=== PATIENT | male | born 1990 | race Caucasian/White ===

== ENCOUNTER 2019-03-18 12:48 | Emergency (ER) | payer BC ==
[~2019-03-18] VITALS: Ht 172.7 cm; Wt 127.0 kg
[2019-03-18 13:05] VITALS: BP_SYST 132
--- NOTE | 2019-03-18 13:05 | NUR ---
Patient to ER bed 7 to gown for evaluation. Side rails up. Report given to HILTON Cobos.
--- NOTE | 2019-03-18 13:06 | NUR ---
KYAW Gates at bedside examining patient.
--- NOTE | 2019-03-18 13:06 | NUR ---
Patient arrived via POV, AAOx4, and ambulatory with steady gait. Patient c/c of nausea and vomiting. Onset was 0400, and has had 3-4 episodes of vomiting. Patient states approximately 1 hour ago, he was able to tolerate apple juice and crackers. Patient states pain is 6/10 to epigastric region. Family at bedside. Patient states he is comfortable sitting upright. Will continue to follow up and monitor.
[2019-03-18] MEDS ORDERED: ONDANSETRON HCL 4 MG/2 ML VIAL IVP ONE (13:45)
[2019-03-18] MEDS ORDERED: KETOROLAC TROMETHAMINE 30 MG VIAL IVP ONE (13:45)
[2019-03-18] MEDS ORDERED: NACL 0.9% 1,000 ML IV ONE (13:45)
[2019-03-18 13:49] LABS: BASOPHILS % (AUTO) 0.2 % (0.0-2.0); EOSINOPHILS # (AUTO) 0.1 K/uL (0.0-0.4); EOSINOPHILS % (AUTO) 0.8 % (0.0-4.0); HEMATOCRIT 47.8 % (36-54); HEMOGLOBIN 16.2 g/dL (14.0-18.0); LYMPHOCYTES # (AUTO) 0.6 K/uL (1.0-5.5); LYMPHOCYTES % (AUTO) 6.5 % (20.5-51.5); MEAN CORPUSCULAR HEMOGLOBIN 28 pg (27-31); MEAN CORPUSCULAR HGB CONC 34 % (32-36); MEAN CORPUSCULAR VOLUME 82 fL (79.0-98.0); MONOCYTES # (AUTO) 0.5 K/uL (0.0-1.0); MONOCYTES % (AUTO) 4.6 % (1.7-9.3); NEUTROPHILS # (AUTO) 8.6 K/uL (1.8-7.7); NEUTROPHILS % (AUTO) 87.9 % (40.0-70.0); PLATELET COUNT (AUTO) 254 K/uL (130-430); RED BLOOD CELL COUNT(AUTO) 5.81 MIL/uL (4.2-6.2); RED CELL DISTRIBUTION WIDTH 13.8 % (9.0-15.0); WHITE BLOOD COUNT (AUTO) 9.8 K/uL (4.8-10.8)
--- NOTE | 2019-03-18 14:05 | NUR ---
patient in bed, no s/s of acute distress noted. report received from jaclyn fay. dad at bedside. will continue to monitor.
[2019-03-18 14:09] LABS: CALCIUM 8.8 mg/dL (8.4-11.0); CREATININE 1.12 mg/dL (0.55-1.30); POTASSIUM 3.7 mmol/L (3.5-5.1)
[2019-03-18 14:15] LABS: ALBUMIN 3.8 g/dL (3.4-4.8); TOTAL BILIRUBIN 1.7 mg/dL (0.0-1.0)
--- NOTE | 2019-03-18 14:30 | NUR ---
patient care endorsed to jaclyn fay
--- NOTE | 2019-03-18 15:30 | NUR ---
patient in bed, no s/s of acute distress noted. will continue to monitor.
[2019-03-18 15:44] VITALS: BP_SYST 132
--- NOTE | 2019-03-18 15:44 | NUR ---
Patient given written and verbal discharge instructions and verbalizes understanding. ER MD discussed with patient the results and treatment provided. Patient in stable condition. ID arm band removed. IV catheter removed intact and dressing applied, no active bleeding. Rx of zofran given. Patient educated on pain management and to follow up with PMD. Pain Scale 0/10. Opportunity for questions provided and answered. Medication side effect fact sheet provided.
== END 2019-03-18 15:44 | disposition home or self-care (01) ==
LOC: SED 12:48
DX: T62.8X1A Toxic effect of other specified noxious substances eaten as food, accidental (unintentional), initial encounter (principal); K76.0 Fatty (change of) liver, not elsewhere classified; Z72.89 Other problems related to lifestyle; R11.10 Vomiting, unspecified; Y92.89 Other specified places as the place of occurrence of the external cause
CPT/HCPCS: 36415; 76700; 80053; 83690; 85025; 96361; 96374; 96375; 99284; J1885; J2405; J7030